=== PATIENT | female | born 1995 | race Caucasian/White ===

== ENCOUNTER 2017-12-16 13:18 | Outpatient (REF) | payer BC, SELFPAY ==
--- NOTE | 2017-12-16 09:00 | PAPFT_PTH ---
PATIENT: Paula Lagos LOC: [facility] U#:[id number] AGE/SX: 22/F ROOM: RE12/16/[address]: Fiona Brown : 1995 BED: DIS: 12/16/2017 SPEC #: [id number] RECD: 12/17/17 12:47 STATUS: RAÚL ZULETA #: [id number] ARNOLDO: 12/16/17 09:[address]: Fiona Martinez DEPT: [facility] Cytology RECD BY: Brandy Shen ENTERED: 12/17/17 12:48 SP TYPE: PAPFT OTHR DR: Elva Lowe Tissues: 1 - CX/ENDOCX FOR PAP SMEARS Procedures: PAP THIN PREP/[facility] Screening Comments: [id number] (CHLAMYDIA GC)
[2017-12-20 14:41] LABS: Chlamydia Result Negative; GC Result Negative; Specimen Description SEE COMMENTS
== END 2017-12-16 13:19 ==
LOC: NCHCN 13:18
PROVIDERS: PCP Family Medicine; Visit Provider Nurse Practitioner Family
DX: Z00.00 Encounter for general adult medical examination without abnormal findings (principal); Z12.4 Encounter for screening for malignant neoplasm of cervix
CPT/HCPCS: 87491; 87591; 88142

== ENCOUNTER 2019-04-27 17:37 | Outpatient (REF) | payer BC, SELFPAY ==
[2019-05-01 14:24] LABS: Chlamydia Result Negative (Negative)
[2019-05-01 16:14] LABS: GC Result Negative (Negative)
== END 2019-04-27 17:57 ==
LOC: NCHCN 17:37
PROVIDERS: PCP Family Medicine; Visit Provider Registered Nurse
DX: R10.9 Unspecified abdominal pain (principal)
CPT/HCPCS: 87491; 87591

== ENCOUNTER 2020-05-22 09:56 | Outpatient (REF) | payer BC, SELFPAY ==
[2020-05-22 13:54] LABS: Absolute Basophil Count 0.02 10^3/uL (0.0-0.2); Absolute Eosinophil Count 0.06 10^3/uL (0.0-0.7); Absolute Lymphocyte Count 1.65 10^3/uL (1.2-3.4); Absolute Monocyte Count 0.29 10^3/uL (0.1-0.8); Absolute Neutrophil Count 0.99 10^3/uL (1.2-6.7); Basophils % 0.7; HCT 38.5 % (36.0-46.0); HGB 12.6 g/dL (11.2-15.7); Lymphocytes % 54.8; MCH 30.1 pg (27.0-33.0); MCHC 32.7 % (32.0-36.0); MCV 91.9 fL (80-95); MPV 12.1 fL (8.0-11.0); Monocytes % 9.6; Neutrophils % 32.9; Nucleated RBC 0 %; Platelet Count 200 10^3/uL (130-400); RBC 4.19 10^6/uL (3.93-5.22); RDW 12.2 % (11.7-14.6); WBC 3.01 10^3/uL (4.4-10.8)
[2020-05-22 14:14] LABS: C-Reactive Protein 0.05 mg/dL (0.0-0.3); TSH 3.21 uIU/mL (0.36-3.74)
[2020-05-22 15:02] LABS: ESR 8 mm/hr (0-20)
[2020-05-23 11:11] LABS: IgA 77 mg/dL (85-499)
[2020-05-24 15:13] LABS: Tissue Transglutaminase Ab IgA <1.2 U/mL
== END 2020-05-22 10:16 ==
LOC: NCHCN 09:56
PROVIDERS: PCP Family Medicine; Visit Provider Nurse Practitioner Family
DX: R10.9 Unspecified abdominal pain (principal); K92.1 Melena; K59.00 Constipation, unspecified
CPT/HCPCS: 82784; 85652; 83516; 84443; 85025; 86140

== ENCOUNTER 2020-05-30 14:17 | Outpatient (REF) | payer BC, SELFPAY ==
[2020-06-03 09:47] LABS: IgA 90 mg/dL (85-499)
[2020-06-03 16:13] LABS: Gliadin (Deamidated) Ab, IgG <10.0 U
== END 2020-05-30 14:37 ==
LOC: NCHCN 14:17
PROVIDERS: PCP Family Medicine; Visit Provider Nurse Practitioner Family
DX: R10.9 Unspecified abdominal pain (principal)
CPT/HCPCS: 82784; 83516

== ENCOUNTER 2020-11-19 16:20 | Outpatient (REF) | payer BC, SELFPAY ==
--- NOTE | 2020-11-19 13:30 | PAPFT_PTH ---
PATIENT: Paula Lagos [facility] U#:[id number] AGE/SX: 25/F ROOM: RE11/19/[address]: Fiona Brown : 1995 BED: DIS: 11/19/2020 SPEC #: [id number] RECD: 11/20/20 09:03 STATUS: RAÚL ZULETA #: [id number] ARNOLDO: 11/19/20 13:[address]: Fiona Martinez DEPT: [facility] Cytology RECD BY: Saloni Miles ENTERED: 11/20/20 09:04 SP TYPE: PAPFT OTHR DR: Elva Lowe Tissues: 1 - CX/ENDOCX FOR PAP SMEARS Procedures: PAP THIN PREP/[facility] Screening Comments: [id number] (CHLAMYDIA/GC)
[2020-11-21 15:13] LABS: Chlamydia Result Negative (Negative); GC Result Negative (Negative)
== END 2020-11-19 16:21 | disposition home or self-care (01) ==
LOC: NCHCN 16:20
PROVIDERS: PCP Family Medicine; Visit Provider Nurse Practitioner Family
DX: Z00.00 Encounter for general adult medical examination without abnormal findings (principal); Z11.3 Encounter for screening for infections with a predominantly sexual mode of transmission; Z12.4 Encounter for screening for malignant neoplasm of cervix
CPT/HCPCS: 87491; 87591; 88142

== ENCOUNTER 2022-08-21 15:37 | Outpatient (REF) | payer BC, SELFPAY ==
[2022-08-24 10:03] LABS: HIV-1/2 Ag & Ab Screen Negative (Negative)
[2022-08-24 11:21] LABS: Syphilis Serology (RPR) Negative (Negative)
[2022-08-25 09:53] LABS: Chlamydia Result Negative (Negative); GC Result Negative (Negative)
== END 2022-08-21 15:38 | disposition home or self-care (01) ==
LOC: NCHCN 15:37
PROVIDERS: PCP Family Medicine; Visit Provider Family Medicine
DX: Z00.00 Encounter for general adult medical examination without abnormal findings (principal); Z11.3 Encounter for screening for infections with a predominantly sexual mode of transmission
CPT/HCPCS: 87389; 87491; 87591; 86592; 87480; 87510; 87660

== ENCOUNTER 2023-03-10 16:54 | Outpatient (REF) | payer BC, SELFPAY ==
[2023-03-17 14:55] LABS: Chlamydia Result Negative (Negative); GC Result Negative (Negative)
== END 2023-03-10 16:55 | disposition home or self-care (01) ==
LOC: NCHCN 16:54
PROVIDERS: PCP Family Medicine; Visit Provider Family Medicine
DX: Z11.3 Encounter for screening for infections with a predominantly sexual mode of transmission (principal)
CPT/HCPCS: 87491; 87591; 87480; 87510; 87660

== ENCOUNTER 2023-12-07 15:53 | Outpatient (REF) | payer BC, SELFPAY ==
--- NOTE | 2023-12-07 08:30 | PAPFT_PTH ---
PATIENT: Paula Lagos LOC: [facility] U#:[id number] AGE/SX: 28/F ROOM: RE12/07/[address]: Fiona Brown : 1995 BED: DIS: 12/07/2023 SPEC #: [id number] RECD: 12/07/23 18:16 STATUS: RAÚL ZULETA #: [id number] ARNOLDO: 12/07/23 08:[address]: Fiona Martinez DEPT: [facility] Cytology RECD BY: Brandy Shen ENTERED: 12/07/23 18:16 SP TYPE: PAPFT SANDRA DR: Elva Lowe Tissues: 1 - CX/ENDOCX FOR PAP SMEARS Procedures: PAP THIN PREP/[facility] Screening Comments: [id number]
== END 2023-12-07 15:54 | disposition home or self-care (01) ==
LOC: NCHCN 15:53
PROVIDERS: PCP Family Medicine; Visit Provider Nurse Practitioner Family
DX: Z12.4 Encounter for screening for malignant neoplasm of cervix (principal)
CPT/HCPCS: 88142